=== PATIENT | male | born 1985 | race Caucasian/White ===

== ENCOUNTER 2016-08-18 19:49 | Emergency (ER) | payer BC ==
[~2016-08-18] VITALS: Ht 185.4 cm; Wt 109.1 kg
[~2016-08-18 19:49] MED LIST: ABILIFY 15MG TA15 MG PO; ANTIVERT 25MG25 MG PO; ATIVAN 0.50.5 MG/TAB PO; CEPHALEXIN500 M1 PO; CYMBALTA 20MG20 MG PO; DEPAKOTE ER 50500 MG PO; IBU800 M1 PO; LAMICTAL 25MG T25 MG PO; NORCO 325 MG-51 TAB PO; NORCO 325 MG-7.1 TAB PO; PHENERGAN W/CO120 M1 PO; REGLAN 10MG10 MG/TAB PO; RITALIN 5MG5 MG/TAB PO; SEROQUEL 1100 MG/TAB PO; TRILEPTAL 300M300 MG PO; ULTRAM 50MG TAB50 MG PO; ZOLOFT 100MG100 MG PO
[2016-08-18 20:06] VITALS: BP 125/89; TEMP 98.4
[2016-08-18] MEDS ORDERED: DEPAKOTE ER 50500 MG PO (20:12)
[2016-08-18] MEDS ORDERED: VOLTAREN 50MG T50 MG PO (20:13)
[2016-08-18 22:45] VITALS: PULSE 66
== END 2016-08-18 22:45 | disposition home or self-care (01) ==
LOC: COL.ER 19:49
DX: M25.562 Pain in left knee (principal); M17.12 Unilateral primary osteoarthritis, left knee
CPT/HCPCS: J1170

== ENCOUNTER 2016-09-01 19:38 | Emergency (ER) | payer BC ==
[~2016-09-01] VITALS: Ht 185.4 cm; Wt 109.1 kg
[~2016-09-01 19:38] MED LIST changes: +VOLTAREN 50MG T50 MG PO
[2016-09-01 19:40] VITALS: BP 161/84; PULSE 78; TEMP 97.8
== END 2016-09-01 20:25 | disposition home or self-care (01) ==
LOC: COL.ER 19:38
DX: G89.29 Other chronic pain (principal); M25.562 Pain in left knee

== ENCOUNTER 2016-09-23 14:49 | Emergency (ER) | payer OTHER ==
[~2016-09-23] VITALS: Ht 185.4 cm; Wt 109.1 kg
[2016-09-23 14:56] VITALS: BP 141/79; PULSE 67; TEMP 98
[2016-09-23] MEDS ORDERED: NORCO 325 MG-7.1 TAB PO (15:01)
== END 2016-09-23 15:54 | disposition left against medical advice (07) ==
LOC: COL.ER 14:49
DX: M25.562 Pain in left knee (principal); Z53.21 Procedure and treatment not carried out due to patient leaving prior to being seen by health care provider